=== PATIENT | female | born 1985 | race Caucasian/White ===

== ENCOUNTER 2017-05-18 19:17 | Emergency (ER) | payer OTHER | END 2017-05-18 20:48 | disposition home or self-care (01) | LOC: ER1 19:17 | DX: L02.414 Cutaneous abscess of left upper limb (principal); F17.210 Nicotine dependence, cigarettes, uncomplicated; Z98.51 Tubal ligation status; Z88.0 Allergy status to penicillin | CPT/HCPCS: 87070; 87077; 87186; 87205; 99282 ==